=== PATIENT | male | born 1945 | race Caucasian/White ===

== ENCOUNTER 2019-12-20 09:52 | Day surgery (SDC) | payer MEDICARE ==
[2019-12-18 11:44] VITALS: BMI 30.7
[~2019-12-20 09:52] MED LIST: LACTATED RINGERS 1,000 ML IV SCH
[2019-12-20 10:21] VITALS: TEMP 96.6
[2019-12-20] MEDS ORDERED: PROPOFOL 10 MG/ML 20 ML VIAL IV ONE (11:45)
--- NOTE | 2019-12-20 12:10 | P.PCN ---
Date of Procedure: 12/20/19 Procedure(s) Performed: BRIEF HISTORY: Patient is a 74-year-old pleasant white male scheduled for an elective colonoscopy as a part of positive cologuard. His last colonoscopy was in 2008. PROCEDURE PERFORMED: Colonoscopy with biopsy. PREOPERATIVE DIAGNOSIS: Positive cologuard. IV sedation per Anesthesia. PROCEDURE: After informed consent was obtained, the patient, was brought into the endoscopy unit. IV sedation was administered by Anesthesia under continuous monitoring. Digital rectal examination was normal. Initially the Olympus CF-160 flexible video colonoscope was then inserted in the rectum, gradually advanced into the cecum without any difficulty. Careful examination was performed as the scope was gradually being withdrawn. Ileocecal valve and the appendiceal orifice were visualized and appeared normal. Prep was excellent. Mucosa of the cecum, ascending colon, transverse colon, appeared normal. The descending colon there was a 3 mm polyp that was removed by cold biopsy. Rest of the descending colon, sigmoid colon, and rectum appeared normal. Scattered sigmoid diverticulosis seen. Retroflexion was performed in the rectum and no lesions were seen. The patient tolerated the procedure well. IMPRESSION: 3 mm descending colon polyp status post removal by cold biopsy. Scattered sigmoid diverticulosis. RECOMMENDATIONS: Findings of this examination were discussed with the patient as well as his family. He was advised to follow with biopsy results. If the biopsy shows an adenoma she can have a repeat colonoscopy in 5 years..
[2019-12-20 12:30] VITALS: BP 102/64; PULSE 63; RESP 18
== END 2019-12-20 12:48 | disposition home or self-care (01) ==
LOC: ORWHC2ENDO 09:52
PROVIDERS: ATTEND Internal Medicine Gastroenterology
DX: K63.5 Polyp of colon (principal); K57.30 Diverticulosis of large intestine without perforation or abscess without bleeding; I10 Essential (primary) hypertension; N40.0 Benign prostatic hyperplasia without lower urinary tract symptoms; Z79.899 Other long term (current) drug therapy; Z98.890 Other specified postprocedural states
CPT/HCPCS: 45380; 88305; J2704